=== PATIENT | male | born 1960 | race Caucasian/White ===

== ENCOUNTER 2018-04-09 14:57 | Emergency (ER) | payer BC, OTHER ==
[2018-04-09 15:08] VITALS: BP 124/74
--- NOTE | 2018-04-09 15:54 | EDM.PDOC ---
ED HPI GENERAL MEDICAL PROBLEM - General Chief Complaint: Upper Extremity Injury/Pain Stated Complaint: LEFT ELBOW INFECTION Time Seen by Provider: 04/09/18 15:30 Source of Information: Reports: Patient History Limitations: Reports: No Limitations - History of Present Illness Onset: Gradual Onset Date: 03/30/18 Duration: Day(s): (10days), Recurring Location: Reports: Upper Extremity, Left (elbow olecranon) Quality: Reports: Ache, Pressure Severity: Moderate Improves with: Reports: Medication (keflex) Worsens with: Reports: Movement Associated Symptoms: Reports: No Other Symptoms Treatments [employer]: Reports: NSAIDS, Other Medication(s) (keflex) Left Elbow Pain Score (Numeric/FACES): 2 - Related Data Allergies Allergy/AdvReac Type Severity Reaction Status Date / Time azithromycin Allergy Rash Verified 04/09/18 15:07 [From Zithromax Z-Carlton] Home Meds: Home Meds Ranitidine HCl [Zantac 75] 1 tab PO DAILY PRN 07/26/16 [History] Ibuprofen [Advil] 200 - 600 mg PO Q6H PRN 04/09/18 [History] Past Medical History HEENT History: Reports: Impaired Vision, Otitis Media Gastrointestinal History: Reports: GERD Other Gastrointestinal History: chronic nausea Neurological History: Reports: Headaches, Chronic Psychiatric History: Reports: Anxiety, Depression - Infectious Disease History Infectious Disease History: Reports: Chicken Pox - Past Surgical History HEENT Surgical History: Reports: None GI Surgical History: Reports: Hernia Repair/Other Male Surgical History: Reports: Vasectomy Social & Family History - Family History Cardiac: Reports: [place] Other Cardiac Family History: father - Tobacco Use Smoking Status *Q: Never Smoker - Caffeine Use Caffeine Use: Reports: Coffee, Soda, Tea Other Caffeine Use: diet - Alcohol Use Days Per Week of Alcohol Use: 2 Number of Drinks Per Day: 2 Total Drinks Per Week: 4 - Recreational Drug Use Recreational Drug Use: No Review of Systems - Review of Systems Review Of Systems: See Below Constitutional: Denies: Chills, Fever Eyes: Reports: No Symptoms Ears: Reports: No Symptoms Nose: Reports: No Symptoms Mouth/Throat: Reports: No Symptoms Respiratory: Reports: No Symptoms Cardiovascular: Denies: Chest Pain, Edema GI/Abdominal: Denies: Abdominal Pain, Diarrhea Genitourinary: Reports: No Symptoms Musculoskeletal: Reports: Arm Pain (left elbow), Joint Swelling (left elbow olecranon). Denies: Joint Pain Skin: Reports: Erythema (left elbow) Neurological: Reports: No Symptoms Psychiatric: Reports: No Symptoms ED EXAM, GENERAL - Physical Exam Exam: See Below Exam Limited By: No Limitations General Appearance: Alert, WD/WN, No Apparent Distress Eye Exam: Bilateral Eye: EOMI Nose: Normal Inspection Throat/Mouth: Normal Voice, No Airway Compromise Head: Atraumatic Neck: Normal Inspection Respiratory/Chest: No Respiratory Distress, Lungs Clear Cardiovascular: Normal Peripheral Pulses, Regular Rate, Rhythm, No Murmur Peripheral Pulses: 2+: Radial (L), Radial (R) Extremities: Normal Range of Motion, Increased Warmth, Redness, Other (left elow olcranon swelling and tenderness). No: Joint Swelling Neurological: Alert, Oriented, Normal Cognition, Normal Gait, No Motor/Sensory Deficits Psychiatric: Normal Affect, Normal Mood Skin Exam: Warm, Dry, Intact, Erythema (left elbow) Lymphatic: No Adenopathy Course - Vital Signs Last Recorded V/S: Last Vital Signs Temp 98.5 F 04/09/18 15:04 Pulse 82 04/09/18 15:04 Resp 18 04/09/18 15:04 BP 124/74 04/09/18 15:04 Pulse Ox 97 04/09/18 15:04 Departure - Departure Time of Disposition: 15:54 Disposition: Home, Self-Care 01 Condition: Good Clinical Impression: Septic olecranon bursitis of left elbow - Discharge Information Instructions: Elbow Bursitis, [id number], Elbow Bursitis Referrals: Trinity Hylton PA-C [Primary Care Provider] - Forms: ED Department Discharge Additional Instructions: 1. Continue with Keflex. 2. Avoid resting elbow on hard surface. 3. Ice/elbow pad prn. 4. Will call on Tuesday to schedule left elbow olecranon bursa excision. 5. Nothing to eat after mid-night tuesday. - Assessment/Plan Assessment:: Septic left olecranon bursitis Plan: 1. Continue with Keflex. 2. Avoid resting elbow on hard surface. 3. Ice/elbow pad prn. 4. Will call on Tuesday to schedule left elbow olecranon bursa excision. 5. Nothing to eat after mid-night tuesday.
== END 2018-04-09 15:58 | disposition home or self-care (01) ==
LOC: KA.ED 14:57
DX: M71.122 Other infective bursitis, left elbow (principal); F32.9 Major depressive disorder, single episode, unspecified; F41.9 Anxiety disorder, unspecified; Z88.1 Allergy status to other antibiotic agents; Z79.899 Other long term (current) drug therapy
CPT/HCPCS: 99283